=== PATIENT | male | born 1945 | race Caucasian/White ===

== ENCOUNTER 2018-01-24 11:53 | Emergency (ER) | payer MEDICARE, OTHER ==
[~2018-01-24] VITALS: Ht 182.9 cm; Wt 93.4 kg
[~2018-01-24 11:53] MED LIST: BACTRIM DS TAB1 EACH PO
[2018-01-24] MEDS ORDERED: KEFLEX500 M1 PO (13:13)
[2018-01-24 13:27] VITALS: BP 101/65
== END 2018-01-24 13:28 | disposition home or self-care (01) ==
LOC: M.ERS 11:53
DX: S69.82XA Other specified injuries of left wrist, hand and finger(s), initial encounter (principal); W20.8XXA Other cause of strike by thrown, projected or falling object, initial encounter; Y93.89 Activity, other specified; Y92.89 Other specified places as the place of occurrence of the external cause; Y99.8 Other external cause status

== ENCOUNTER 2018-01-31 14:24 | Emergency (ER) | payer MEDICARE, OTHER ==
[~2018-01-31] VITALS: Ht 190.5 cm; Wt 113.4 kg
[~2018-01-31 14:24] MED LIST changes: +KEFLEX500 M1 PO
[2018-01-31 15:10] LABS: HEMATOCRIT 44.8 % (42.0-52.0); HEMOGLOBIN 14.8 gm/dL (14.0-18.0); MCH 30.6 pg (26.0-34.0); MCHC 33.1 g/dL (28.0-37.0); MCV 92.3 fL (80.0-100.0); MPV 7.9 fl. (7.2-11.1); NUCLEATED RBCS 0 /100WBC; PLATELET COUNT* 202 thou/uL (150-400); RBC 4.85 mil/uL (4.50-6.00); RDW-CV 13.1 % (10.5-14.5); WBC 11.8 thou/uL (4.0-11.0)
[2018-01-31 15:20] LABS: CALCIUM 9.1 mg/dL (8.5-10.1); POTASSIUM 3.8 mmol/L (3.5-5.1)
[2018-01-31 15:24] LABS: ALBUMIN 4.1 g/dL (3.4-5.0); TOTAL BILIRUBIN 0.7 mg/dL (<0.1-1.0); TOTAL PROTEIN 7.5 g/dL (6.4-8.2)
[2018-01-31 15:39] LABS: ABSOLUTE LYMPHOCYTES 0.7 thou/uL (0.8-5.3); ABSOLUTE MONOCYTES 0.4 thou/uL (0.0-1.2); ABSOLUTE NEUTROPHILS 10.7 thou/uL (1.6-8.1)
[2018-01-31 15:41] LABS: PLATELET ESTIMATE ADEQUATE
[2018-01-31 16:42] LABS: URINE BILIRUBIN NEGATIVE (Negative); URINE BLOOD 3+ (Negative); URINE CLARITY CLEAR; URINE COLOR YELLOW; URINE GLUCOSE-RANDOM NEGATIVE (Negative); URINE KETONES NEGATIVE (Negative); URINE LEUKOCYTES-REFLEX NEGATIVE (Negative); URINE NITRITE-REFLEX NEGATIVE (Negative); URINE PROTEIN NEGATIVE (Negative); URINE UROBILINOGEN 0.2 E.U./dl (0.2-1.0)
[2018-01-31 16:59] LABS: BACTERIA-REFLEX 1-9 Few /HPF (None Seen); CASTS None Seen /LPF (None Seen); CRYSTALS None Seen /LPF (None Seen); MUCUS None Seen strn/LPF (None Seen); SQUAMOUS NONE SEEN /LPF (0-3); URINE RBC >20 Many /HPF (0-2)
[2018-01-31] MEDS ORDERED: CIPRO500 MG PO (16:59)
[2018-01-31 17:00] LABS: URINE WBC-REFLEX None Seen /HPF (0-5)
[2018-01-31] MEDS ORDERED: HYDROCODONE-AP1 EAC6 PO (17:26)
[2018-01-31 17:30] VITALS: BP 108/57
== END 2018-01-31 17:30 | disposition home or self-care (01) ==
LOC: M.ERS 14:24
PROVIDERS: Physician Assistant
DX: R33.9 Retention of urine, unspecified (principal); R31.0 Gross hematuria; Z90.49 Acquired absence of other specified parts of digestive tract

== ENCOUNTER 2018-02-09 21:58 | Emergency (ER) | payer MEDICARE, OTHER ==
[~2018-02-09] VITALS: Ht 182.9 cm; Wt 92.5 kg
[~2018-02-09 21:58] MED LIST changes: +CIPRO500 MG PO; +HYDROCODONE-AP1 EAC6 PO
[2018-02-09 23:45] LABS: URINE BILIRUBIN NEGATIVE (Negative); URINE BLOOD 3+ (Negative); URINE CLARITY CLEAR; URINE COLOR YELLOW; URINE GLUCOSE-RANDOM NEGATIVE (Negative); URINE KETONES NEGATIVE (Negative); URINE LEUKOCYTES-REFLEX NEGATIVE (Negative); URINE NITRITE-REFLEX NEGATIVE (Negative); URINE PROTEIN NEGATIVE (Negative); URINE UROBILINOGEN 0.2 E.U./dl (0.2-1.0)
[2018-02-09 23:54] LABS: AMORPHOUS URATES Moderate /LPF (None Seen); CASTS None Seen /LPF (None Seen); MUCUS 4-6 Moderate strn/LPF (None Seen); SQUAMOUS 0-3 Few /LPF (0-3); URINE RBC >20 Many /HPF (0-2); URINE WBC-REFLEX 6-15 Few /HPF (0-5); WBC CLUMPS Few (None Seen)
[2018-02-09] MEDS ORDERED: BACTRIM DS TAB1 EACH PO (23:55)
[2018-02-09] MEDS ORDERED: COLACE100 MG PO (23:56)
[2018-02-10 00:13] VITALS: BP 95/52
== END 2018-02-10 00:15 | disposition home or self-care (01) ==
LOC: M.ERS 21:58
PROVIDERS: Nurse Practitioner Family
DX: R33.9 Retention of urine, unspecified (principal); N39.0 Urinary tract infection, site not specified